=== PATIENT | male | born 1970 | race African-American/Black ===

== ENCOUNTER 2017-10-20 01:46 | Inpatient (IN) | payer OTHER ==
[2017-10-20 02:57] LABS: #Basophils 0.1 thou/uL (0.0-0.2); #Eosinphils 0.3 thou/uL (0.0-0.7); #Lymphocytes 2.1 thou/uL (1.20-3.40); #Monocytes 0.8 thou/uL (0.11-0.59); #Neutrophils 6.4 thou/uL (1.40-6.50); %Basophils 1.1 % (0.0-1.0); %Eosinophils 2.6 % (0.0-10.0); %Lymphocytes 21.8 % (21.0-51.0); %Monocytes 8.6 % (0.0-10.0); %Neutrophils 65.9 % (42.0-75.0); Hemoglobin 13.9 g/dL (14.0-18.0); Mean Corpuscular Hemoglobin 27.3 pg (27.0-31.0); Mean Corpuscular Volume 85.3 fL (78.0-98.0); Mean Platelet Volume 8.5 fL (7.4-10.4); Platelet Count 259 thou/uL (130-400); RBC Distribution Width 15.8 % (11.5-14.5); Red Blood Cell (RBC) Count 5.08 mill/uL (4.70-6.10); White Blood Cell (WBC) Count 9.7 thou/uL (4.8-10.8)
[2017-10-20 03:04] LABS: Prothrombin Time 13.7 SEC (12.0-14.7)
[2017-10-20 03:05] LABS: PTT 34.5 SEC (22.9-36.1)
[2017-10-20 03:19] LABS: ALT (SGPT) 16 U/L (8-55); AST (SGOT) 24 U/L (5-34); Albumin 4.3 g/dL (3.5-5.0); Alkaline Phosphatase 39 U/L (40-150); Anion Gap 13 mmol/L (10-20); BUN (Urea Nitrogen) 13 mg/dL (8.9-20.6); Bilirubin, Total 0.9 mg/dL (0.2-1.2); Calc. Creatinine Clearance 0 mL/min (70-130); Calcium 10.5 mg/dL (7.8-10.44); Carbon Dioxide 29 mmol/L (22-29); Chloride 100 mmol/L (98-107); Estimated GFR-MDRD Greater than 90; Globulin 5.9 g/dL (2.4-3.5); Glucose 86 mg/dL (70-105); Potassium 4.4 mmol/L (3.5-5.1); Protein, Total 10.2 g/dL (6.0-8.3); Sodium 138 mmol/L (136-145)
[2017-10-20] MEDS ORDERED: Ondansetron ODT 4 MG TAB SL PRN (05:24)
[2017-10-20] MEDS ORDERED: Ondansetron HCl/PF 4 MG/2 ML Vial IVP PRN (05:24)
[2017-10-20] MEDS ORDERED: Acetaminophen 325 MG TAB PO PRN (05:24)
[2017-10-20] MEDS ORDERED: Sodium Chloride 0.45% 1,000 ML IV SCH (05:24)
[2017-10-20 05:25] VITALS: BMI 16.9
[2017-10-20] MEDS ORDERED: Labetalol HCl 100 MG/20 ML VIAL SLOW IVP PRN (05:25)
[2017-10-20] MEDS: Sodium Chloride 0.9% 1,000 ML IV SCH ×2 (08:18→16:48)
[2017-10-20] MEDS ORDERED: levETIRAcetam In NaCl (Iso-Os) 1,000 MG in Premix Bag 1 BAG IVPB SCH (09:00)
--- NOTE | 2017-10-20 10:25 | CT ---
PRELIMINARY REPORT/[facility]/EMERGENTY AFTER-HOURS PROCEDURE Addendum created by Karel Leyva MD on 10/20/2017 5:46 AM Central Time ([place] & [place]) Findings discus sed with JOYCE STEELE at time of interpretation. Initial Report created on 10/20/2017 5:46 AM Central Time ([place] & [place]) CT Head Without Intravenous Contrast CLINICAL HISTORY: 46 years old, male; Signs and symptoms; Other: Headache; Patient HX: 46 yo m transfer from [place] presents to ed with headache. PT reports his "neck got locked up and couldn't move. " PT denies any fall or trauma to head. PT denies any blood thinners. PT reports he was diagnosed with an aneurysm ab out 1 year ago. PT went to hospital in [place] around 5: 30pm yesterday, he was then transferred h ere after cat scan found blood. CT brain without contrast showed acute subdural hemorrhage in the pos terior fossa/tentorial region with extension along the posterior aspect of the falx TECHNIQUE: Axial computed tomography images of the head/brain without intravenous contrast. COMPARISON: No relevant prior studies available. FINDINGS: Brain: Diffuse acute extra-axial blood layering symmetrically along the tentorium cerebelli. There is diffuse edema of the cerebellum with compression of the fourth ventricle, resulting in symmetric dil atation of the third and lateral ventricles, consistent with obstructive hydrocephalus. There is also incompletely visualized large volume extra-axial blood in the anterior central canal at the C1-C2 le curtis. No herniation. Ventricles: See Brain Finding. Bones/joints: Normal. No acute fracture. Sinuses: Partial opacification of the frontal and ethmoid sinuses may signify sinusitis. Mastoid air cells: Normal as visualized. No mastoid effusion. Soft tissues: Normal. IMPRESSION: 1. Diffuse acute extra-axial blood layering some ventricle along the tentorium cerebellum with diffus e cerebellar edema resulting in compression of the fourth ventricle, causing obstructive hydrocephalu s. There is also incompletely visualized large volume extra-axial blood in the anterior central canal , at the C1-C2 level. 2. Partial opacification of the frontal and ethmoid sinuses may signify sinusitis. Thank you for allowing us to participate in the care of your patient. Dictated and Authenticated by: Karel Leyva MD 10/20/2017 5:46 AM Central Time ([place] & [place]) FINAL REPORT CT BRAIN WITHOUT CONTRAST: I agree with the preliminary report given by Dr. Karel Leyva of [facility]. Incidentally noted dural vein thombosis is described on concurrent MRI. POS: [facility]
--- NOTE | 2017-10-20 10:28 | CT ---
PRELIMINARY REPORT/[facility]/EMERGENTY AFTER-HOURS PROCEDURE CT Angiography Head With Intravenous Contrast CLINICAL HISTORY: 46 years old, male; Pain; Headache; Patient HX: 46 yo m transfer from [place] presents to ed with headache. Pt reports his "neck got locked up and couldn't move. " pt denies any fall or trauma to hea d. Pt denies any blood thinners. Pt reports he was diagnosed with an aneurysm about 1 year ago. Pt we nt to hospital in [place] around 5: 30pm yesterday, he was then transferred here after cat scan fo und blood. CT brain without contrast showed acute subdural hemorrhage in the posterior fossa/tentoria l region with extension along the posterior aspect of the falx TECHNIQUE: Axial computed tomographic angiography images of the head with intravenous contrast using CT angiogra phy protocol. MIP reconstructed images were created and reviewed. Coronal and sagittal reformatted im ages were created and reviewed. COMPARISON: No relevant prior studies available. FINDINGS: Right internal carotid artery: No acute findings. Intracranial segment is patent with no significant stenosis. No aneurysm. Right anterior cerebral artery: Unremarkable. No occlusion or significant stenosis. No aneurysm. Right middle cerebral artery: Unremarkable. No occlusion or significant stenosis. No aneurysm. Right posterior cerebral artery: Unremarkable. No occlusion or significant stenosis. No aneurysm. Right vertebral artery: Unremarkable as visualized. Left internal carotid artery: No acute findings. Intracranial segment is patent with no significant s tenosis. No aneurysm. Left anterior cerebral artery: Unremarkable. No occlusion or significant stenosis. No aneurysm. Left middle cerebral artery: Unremarkable. No occlusion or significant stenosis. No aneurysm. Left posterior cerebral artery: Unremarkable. No occlusion or significant stenosis. No aneurysm. Left vertebral artery: Unremarkable as visualized. Basilar artery: Unremarkable. No occlusion or significant stenosis. No aneurysm. Other vasculature: The left jugular vein is patent. Brain: The straight sinus is diminutive but patent potentially secondary to compression by the subdur al parafalcine hematoma. There is nonopacification of the lateral left transverse sinus and left sigm oid sinus which could be due to flow phenomenon related to compression by the parafalcine subdural he matoma, could be chronic, or could represent age-indeterminate thrombosis. IMPRESSION: 1. No aneurysm or AVM. 2. The straight sinus is diminutive but patent potentially secondary to compression by the subdural p arafalcine hematoma. 3. There is nonopacification of the lateral left transverse sinus and left sigmoid sinus which could be due to flow phenomenon related to compression by the parafalcine subdural hematoma, could be chron ic, or could represent age-indeterminate thrombosis. CT Angiography Neck With Intravenous Contrast TECHNIQUE: Axial computed tomographic angiography images of the neck with intravenous contrast using CT angiogra phy protocol. COMPARISON: No relevant prior studies available. FINDINGS: VASCULATURE: Right common carotid artery: Unremarkable. No significant stenosis. No dissection or occlusion. Right internal carotid artery: Unremarkable. Extracranial segment is patent with no significant steno sis. No dissection or occlusion. Right external carotid artery: Unremarkable. No occlusion. Right vertebral artery: Unremarkable. No significant stenosis. No dissection or occlusion. Left common carotid artery: Unremarkable. No significant stenosis. No dissection or occlusion. Left internal carotid artery: Unremarkable. Extracranial segment is patent with no significant stenos is. No dissection or occlusion. Left external carotid artery: Unremarkable. No occlusion. Left vertebral artery: Unremarkable. No significant stenosis. No dissection or occlusion. NECK: Bones/joints: Large amount of extra-axial blood in the anterior central canal from the foramen magnum to approximately the C6 level. No acute fracture. No dislocation. Soft tissues: Unremarkable as visualized. No mass. CAROTID STENOSIS REFERENCE USING NASCET CRITERIA: % ICA stenosis = (1 - narrowest ICA diameter/diameter of distal cervical ICA) x 100. Mild - <50% stenosis. Moderate - 50-69% stenosis. Severe - 70-94% stenosis. Near occlusion - 95-99% stenosis. Occluded - 100% stenosis. IMPRESSION: 1. Large amount of extra-axial blood in the anterior central canal from the foramen magnum to approxi mately the C6 level. 2. No acute vascular findings. Thank you for allowing us to participate in the care of your patient. Dictated and Authenticated by: Karel Leyva MD 10/20/2017 6:02 AM Central Time ([place] & [place]) FINAL REPORT CT HEAD WITH IV CONTRAST AND 3D POSTPROCESSING CT NECK WITH IV CONTRAST AND 3D POSTPROCESSING: I agree with the preliminary report given by Dr. Karel Leyva of [facility]. Incidentally noted dural vein thombosis is described on concurrent MRI. POS: [facility]
[2017-10-20] MEDS ORDERED: ISOVUE-370 76%-LOCM 1 ML ONE (10:35)
[2017-10-20 11:17] LABS: Hemoglobin 12.5 g/dL (14.0-18.0); Platelet Count 229 thou/uL (130-400)
[2017-10-20] MEDS: Heparin 25,000 units/D5W 500 ML IVPB SCH (11:22)
[2017-10-20] MEDS: Acetaminophen 1,000 MG in Premix Bag 1 BAG IVPB PRN ×2 (11:23→18:29)
--- NOTE | 2017-10-20 12:03 | MRI ---
MRI BRAIN WITH AND WITHOUT CONTRAST: CLINICAL HISTORY: Abnormal CT examination. Headache. Clinical concern for intracranial hemorrhage. FINDINGS: There is abnormal pachymeningeal thickening and enhancement, which predominantly involves the skull b ase cisterns/posterior fossa. There is relative sparing of this finding overlying the cerebrum. The re is abnormal prominent narrowing at the level of the fourth ventricle with associated ventriculomeg jhon, proximally. No pathologic enhancement along the ependymal lining is seen. There are abnormal diminished flow voids seen at the level of the left sigmoid sinus, left internal j ugular vein flow void, left transverse sinus, and region of the torcula herophili. This does indicat e abnormal filling defect related to thrombosis. There is no pathologic intraaxial enhancement or si gnificant degree of cerebral edema. No intracranial hemorrhagic susceptibility. Blush of enhancement at the anterior left subinsula indicates developmental venous anomaly. Scattered paranasal sinus mucosal inflammation/enhancement is present. There is fluid within the fro ntal sinus. No significant mastoid effusion. A few nonspecific punctate foci of FLAIR and T2 hyperintensity are seen within the cerebral parenchym a. IMPRESSION: 1. Evidence of pachymeningeal enhancement and thickening, predominantly at the skull base cisterns a nd posterior fossa. Given concomitant abnormal flow void of the left skull base, this most likely re lates to venous congestion. The possibility of an infectious meningitis with associated dural vein t hrombosis cannot be excluded and should be correlated clinically. 2. Obstructive hydrocephalus occurring at the level of the fourth ventricle. 3. Prominent paranasal sinus inflammatory mucosal disease. Findings conveyed to Dr. Rollins at the time of dictation. POS: [facility]
--- NOTE | 2017-10-20 12:08 | PRG ---
DATE OF SERVICE: 10/20/2017 Mr. Hadley is a 46-year-old gentleman that presents with a protracted course of a progressively worsen ing headache. He had a noncontrast head CT performed which initially was concerning for subdural hem atoma and associated ventriculomegaly. Subsequent to that time, he had a CT angiogram performed of t he head as well as MRI of the head which shows a venous sinus thrombosis along the left transverse si nus down to the sigmoid and proximal aspect of the jugular. Other than a headache, he is neurologica lly intact. There have been no signs of infection. Mr. 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 There is no evidence for intracerebral hemorrhage at this point in time. The manage ment plan will be one of medical management in the way of aggressive hydration, but also anticoagulat ion. He will need a CT scan within the next couple of days to ensure there are no signs of early brandi ous infarct with associated hemorrhagic conversion. We will consult our Medicine colleagues to celestine t with medical management as well.
[2017-10-20] MEDS ORDERED: Albuterol Sulfate 2.5 mg/3 ml Neb NEB PRN (15:59)
--- NOTE | 2017-10-20 18:36 | CON ---
DATE OF CONSULTATION: 10/20/2017 CONSULTING PHYSICIAN: [facility]. REASON FOR CONSULTATION: ICU management. HISTORY OF PRESENT ILLNESS: The patient is a 46-year-old inmate. He presented to the hospital [facility] with progressive worsening of a headache. Before that, he had had some numbness in his hands, w hich resolved spontaneously. He was found to have central venous sinus thrombosis, which had led to communicating hydrocephalus. Apparently, he had no evidence of intracranial hemorrhage at that time. At the current time, the patient has a mild headache, but has no other complaints. PAST MEDICAL HISTORY: 1. Asthma. 2. Hepatitis C. 3. Hypothyroidism. 4. Schizophrenia. PAST SURGICAL HISTORY: None. ALLERGIES: PENICILLIN. MEDICATIONS PRIOR TO ADMISSION: Iron sulfate, levothyroxine, nortriptyline, Proventil, risperidone. SOCIAL HISTORY: Does not smoke, does not consume alcohol. REVIEW OF SYSTEMS: Twelve-point review of systems is otherwise negative. PHYSICAL EXAMINATION: VITAL SIGNS: Temperature 97.5, pulse 100, blood pressure 102/53, O2 sat 95%. GENERAL: He is awake, alert, in no distress. HEENT: Unremarkable. NECK: Without adenopathy, JVD, or bruits. LUNGS: Clear without wheeze or rhonchi. CARDIAC: S1, S2 regular without murmur. ABDOMEN: Soft, nontender, nondistended. EXTREMITIES: No clubbing, cyanosis, or edema. LABORATORY DATA: White blood cell count 9.7, hematocrit 39.2, platelet count 229. PTT is 33.7. Sod ium 138, potassium 4.4, chloride 100, CO2 of 29, BUN 13, creatinine 0.8, glucose 86. Brain MRI from this morning demonstrated obstructive hydrocephalus occurring at the level of fourth ventricle, promi nent paranasal sinus inflammation, also has the venous thrombosis. ASSESSMENT: 1. Cerebral venous sinus thrombosis. 2. History of asthma, which is stable. 3. Schizophrenia, which appears stable. PLAN: I will write him for as needed breathing treatments. He is currently being anticoagulated by the Neurosurgery service. He is also on IV fluids. Deep venous thrombosis prophylaxis will be addre ssed with the heparin drip. I will add Pepcid for GI prophylaxis.
[2017-10-20] MEDS: Famotidine 20 MG TAB PO SCH (20:54)
[2017-10-21] MEDS: Sodium Chloride 0.9% 1,000 ML IV SCH ×4 (00:05→22:20)
[2017-10-21] MEDS: Acetaminophen 1,000 MG in Premix Bag 1 BAG IVPB PRN ×2 (06:23)
--- NOTE | 2017-10-21 07:30 | CT ---
CT BRAIN WITHOUT CONTRAST: Date: 10/21/17 HISTORY: Venous sinus thrombosis. COMPARISON: CT brain dated 10/20/17. FINDINGS: There is similar appearance of the thickened hyperdense tentorium cerebelli with abnormal thickened e xtra-axial soft tissue along the brainstem. No intra-axial hemorrhage. Ventricular size is similar. N o midline shift. IMPRESSION: Similar appearance of the thickened tentorium cerebelli which is hyperdense with thickened extra-axia l soft tissue along the brainstem. Differential includes pachymeningeal thickening from infection, as well as completely unchanged hemorrhage. POS: [facility]
[2017-10-21] MEDS: Famotidine 20 MG TAB PO SCH ×2 (08:14→20:46)
--- NOTE | 2017-10-21 09:08 | PRG ---
DATE OF SERVICE: 10/21/2017. SUBJECTIVE: Mr. Hadley is a 47-year-old gentleman admitted with a headache. He underwent imaging yes terday, which reveals the presence of a venous sinus thrombosis. He has been in the ICU undergoing a nticoagulation with a heparin drip and IV fluids. Neurologically, he has been intact. Repeat CT sca n was stable. The plan will be to transition him to the floor and continue with anticoagulants for t he foreseeable future. He will need to be transitioned at some point from a heparin drip to oral ant icoagulants. We will also transition service to our Hospitalist Service for definitive medical manag ement.
[2017-10-21] MEDS ORDERED: Gadobenate Dimeglumine 529 MG/1 ML (20ML VIAL) ONE (10:44)
--- NOTE | 2017-10-21 11:51 | PRG ---
DATE OF SERVICE: 10/21/2017 SERVICE: Pulmonary Medicine. INTERVAL HISTORY: The patient is doing fine from a respiratory standpoint. He denies any chest pain , nausea, vomiting, fevers or chills. He continues to have persistent headache. He is tolerating p. o. Otherwise, there has been no interval change to his condition. OBJECTIVE: VITAL SIGNS: Afebrile, pulse 68, blood pressure 117/68, respirations 13, saturation 99% on room air. GENERAL: The patient is awake, alert, no apparent distress. LUNGS: Decent air entry. There is no prolonged expiratory phase or wheezing present. HEART: Normal rate, regular. ABDOMEN: Soft, nontender, nondistended. Bowel sounds are positive. MUSCULOSKELETAL: No cyanosis or clubbing. No pitting in the bilateral lower extremities. NEUROLOGIC: Nonfocal. He is moving all 4 extremities. HEENT: Pupils are equal, round, and reactive to light. IMAGING: CT of the brain demonstrates similar appearance of thickened tentorium cerebelli and extraa xial soft tissues along the brainstem. ASSESSMENT: 1. Cerebral venous thrombosis. 2. Asthma without acute exacerbation. 3. Schizophrenia. DISCUSSION AND PLAN: The patient is stable for transition out of the ICU to the stroke unit. [facility] will continue to follow along for the time being. We will monitor closely for neur ologic deterioration. If that is identified, please give us a phone call.
--- NOTE | 2017-10-21 11:52 | PDOC.PN ---
- Subjective Encounter Start Date: 10/21/17 Encounter Start Time: 11:50 Pt seen for management of medical comorbidities, including venous sinus thrombosis. Reports having on and off headaches. Denies chest pain or shortness of breath. - Objective MAR Reviewed: Yes Vital Signs & Weight: Vital Signs (12 hours) Temp Pulse Resp Pulse Ox 10/21/17 08:00 97.6 F 68 13 99 10/21/17 04:00 98.0 F 10/21/17 00:00 98.2 F Weight Admit Weight 135 lb 12.864 oz Weight 135 lb 12.864 oz Most Recent Monitor Data Heart Rate from ECG 67 NIBP 127/80 NIBP BP-Mean 91 Respiration from ECG 12 SpO2 96 I&O: 10/20/17 10/21/17 10/22/17 06:59 06:59 06:59 Intake Total 100 3507 912.4 Output Total 500 350 500 Balance -400 3157 412.4 Result Diagrams: 10/20/17 10:52 10/20/17 02:40 EKG Reviewed by me: Yes (Tele: NSR) Phys Exam - Physical Examination Constitutional: NAD HEENT: moist MMs, sclera anicteric, oral pharynx no lesions, 2+ tonsils Neck: no nodes, no JVD, supple, full ROM Respiratory: no wheezing, no rales, no rhonchi, clear to auscultation bilateral Cardiovascular: RRR, gallop S1,S2 Gastrointestinal: soft, non-tender, no distention, positive bowel sounds Neurological: moves all 4 limbs Psychiatric: normal affect Deviation from normal: oriented to person and place, not to time Dx/Plan (1) Cerebral venous sinus thrombosis Code(s): G08 - INTRACRANIAL AND INTRASPINAL PHLEBITIS AND THROMBOPHLEBITIS Status: Acute Comment: on heparin drip, will start warfarin (2) Hypothyroidism Code(s): E03.9 - HYPOTHYROIDISM, UNSPECIFIED Status: Chronic Comment: continue synthroid (3) Iron deficiency anemia Code(s): D50.9 - IRON DEFICIENCY ANEMIA, UNSPECIFIED Status: Chronic Comment : continue ferrous sulfate (4) Asthma Code(s): J45.909 - UNSPECIFIED ASTHMA, UNCOMPLICATED Status: Chronic Comment : stable, continue PRN albuterol (5) Hepatitis C Code(s): B19.20 - UNSPECIFIED VIRAL HEPATITIS C WITHOUT HEPATIC COMA Status: Chronic Comment: stable - Plan * . Review of Systems - Review of Systems Constitutional: negative: fever, chills, sweats, weakness, malaise Respiratory: negative: Cough, Shortness of Breath, SOB with Excertion, Pleuritic Pain, Wheezing Cardiovascular: negative: chest pain, palpitations, orthopnea, paroxysmal nocturnal dyspnea, edema, light headedness Gastrointestinal: negative: Nausea, Vomiting, Abdominal Pain, Diarrhea, Constipation, Melena, Hematochezia Genitourinary: negative: Dysuria, Frequency, Incontinence, Hematuria, Retention Neurological: Other. negative: Weakness, Numbness, Incoordination, Change in Speech, Confusion, Seizures (headache) - Medications/Allergies Allergies/Adverse Reactions: Allergies Allergy/AdvReac Type Severity Reaction Status Date / Time Penicillins Allergy Verified 10/20/17 05:24 Medications: Current Medications Albuterol Sulfate (Ventolin) 2.5 mg NEB [id number] PRN PRN Reason: Wheezing Famotidine (Pepcid) 20 mg PO BID [facility] Last Admin: 10/21/17 08:14 Dose: 20 mg Sodium Chloride (Normal Saline 0.9%) 1,000 mls @ 120 mls/hr IV .Q8H20M HELEN Last Admin: 10/21/17 05:06 Dose: 1,000 mls Heparin Sodium/Dextrose (Heparin 25,000 Units/D5w 500 Ml) 500 mls @ 0 mls/hr IVPB INF HELEN; Per Protocol PRN Reason: Protocol Last Admin: 10/20/17 11:22 Dose: 500 mls Morphine Sulfate (Morphine) 2 mg SLOW IVP Q2HR PRN PRN Reason: severe breakthrough pain Last Admin: 10/21/17 11:25 Dose: 2 mg Sodium Chloride (Flush - Normal Saline) 10 ml IVF Q12HR HELEN Last Admin: 10/21/17 08:14 Dose: 10 ml Sodium Chloride (Flush - Normal Saline) 10 ml IVF PRN PRN PRN Reason: Saline Flush
[2017-10-21] MEDS ORDERED: PROVENTIL INHALER 6.7 G (200 INHALATIONS) INH PRN (11:54)
[2017-10-21] MEDS: Heparin 25,000 units/D5W 500 ML IVPB SCH (14:15)
[2017-10-21] MEDS: Acetaminophen/Codeine 30-300mg Tablet PO PRN (20:45)
[2017-10-21] MEDS: Nortriptyline HCl 25 MG CAP PO SCH (20:45)
[2017-10-21] MEDS: risperiDONE 1 MG TAB PO SCH (20:46)
[2017-10-22] MEDS: Levothyroxine Sodium 25 MCG TAB PO SCH (05:46)
[2017-10-22] MEDS: Acetaminophen/Codeine 30-300mg Tablet PO PRN ×3 (05:46→21:49)
[2017-10-22] MEDS: Famotidine 20 MG TAB PO SCH ×2 (08:14→21:48)
[2017-10-22] MEDS: Ferrous Sulfate 325 MG TAB PO SCH (08:15)
[2017-10-22] MEDS: Sodium Chloride 0.9% 1,000 ML IV SCH (08:22)
[2017-10-22] MEDS ORDERED: metroNIDAZOLE 500 MG in Premix Bag 1 BAG IVPB SCH (09:00)
[2017-10-22 09:25] LABS: #Basophils 0.1 thou/uL (0.0-0.2); #Eosinphils 0.2 thou/uL (0.0-0.7); #Lymphocytes 1.9 thou/uL (1.20-3.40); #Monocytes 0.6 thou/uL (0.11-0.59); #Neutrophils 5.2 thou/uL (1.40-6.50); %Basophils 1.3 % (0.0-1.0); %Lymphocytes 23.7 % (21.0-51.0); %Monocytes 7.7 % (0.0-10.0); %Neutrophils 65.3 % (42.0-75.0); Hemoglobin 11.5 g/dL (14.0-18.0); Mean Corpuscular HGB CONC 31.2 g/dL (32.0-36.0); Mean Corpuscular Volume 86.7 fL (78.0-98.0); Mean Platelet Volume 8.8 fL (7.4-10.4); Platelet Count 251 thou/uL (130-400); RBC Distribution Width 15.5 % (11.5-14.5); Red Blood Cell (RBC) Count 4.27 mill/uL (4.70-6.10)
[2017-10-22 09:37] LABS: Anion Gap 13 mmol/L (10-20); BUN (Urea Nitrogen) 6 mg/dL (8.9-20.6); Calc. Creatinine Clearance 86 mL/min (70-130); Calcium 9.5 mg/dL (7.8-10.44); Carbon Dioxide 26 mmol/L (22-29); Chloride 103 mmol/L (98-107); Estimated GFR-MDRD Greater than 90; Glucose 97 mg/dL (70-105); Potassium 3.5 mmol/L (3.5-5.1); Sodium 138 mmol/L (136-145)
[2017-10-22] MEDS ORDERED: Vancomycin HCl 1 GM in Premix Bag 1 BAG IVPB SCH (10:00)
[2017-10-22 10:04] LABS: D-Dimer Test 0.89 *mcg/mL (0.27-0.43); PTT 59.4 SEC (22.9-36.1); Prothrombin Time 13.5 SEC (12.0-14.7)
[2017-10-22 10:07] LABS: Protein C Activity 116 % (78-152)
--- NOTE | 2017-10-22 10:13 | CT ---
CT BRAIN WITHOUT CONTRAST: HISTORY: Follow-up thickened pachymeninges along the tentorium. COMPARISON: 10/21/2017 TECHNIQUE: Multiple contiguous axial images were obtained in a CT of the brain without contrast. FINDINGS: There is stable increased density along the tentorium. No intraventricular hemorrhage is seen. Ther e is slight prominence of the lateral ventricles. No extraaxial fluid collection is seen. The calvarium and overlying soft tissues are unremarkable. The visualized paranasal sinuses and mast oid air cells are well aerated. IMPRESSION: Stable increased density of the tentorium. POS: [facility]
--- NOTE | 2017-10-22 13:25 | PDOC.PN ---
- Subjective Encounter Start Date: 10/22/17 Encounter Start Time: 13:22 Subjective: feels left sided headache and throbbing-for years -: no arm or leg weakness/paraesthesias - Objective MAR Reviewed: Yes Vital Signs & Weight: Vital Signs (12 hours) Temp Pulse Resp BP Pulse Ox 10/22/17 08:23 98 F 72 18 96 10/22/17 08:00 97.9 F 86 12 153/87 H 96 Weight Admit Weight 135 lb 12.864 oz Weight 135 lb 12.864 oz Most Recent Monitor Data Heart Rate from ECG 67 NIBP 127/80 NIBP BP-Mean 91 Respiration from ECG 12 SpO2 96 I&O: 10/21/17 10/22/17 10/23/17 06:59 06:59 06:59 Intake Total 3507 912.4 1920 Output Total 828 481 6841 Balance 3157 412.4 220 Result Diagrams: 10/22/17 09:08 10/22/17 09:08 Additional Labs: labs reviewed Phys Exam - Physical Examination Constitutional: NAD HEENT: PERRLA, moist MMs, sclera anicteric, oral pharynx no lesions Neck: no nodes, no JVD, supple, full ROM Respiratory: no wheezing, no rales, no rhonchi, clear to auscultation bilateral Cardiovascular: RRR, no significant murmur, no rub Gastrointestinal: soft, non-tender, no distention, positive bowel sounds Musculoskeletal: no edema, pulses present Neurological: non-focal, normal sensation, moves all 4 limbs Psychiatric: normal affect, A&O x 3 Skin: no rash Dx/Plan (1) Cerebral venous sinus thrombosis Code(s): G08 - INTRACRANIAL AND INTRASPINAL PHLEBITIS AND THROMBOPHLEBITIS Status: Acute Comment: on heparin drip, will start warfarin (2) Asthma Code(s): J45.909 - UNSPECIFIED ASTHMA, UNCOMPLICATED Status: Chronic Comment : stable, continue PRN albuterol (3) Hepatitis C Code(s): B19.20 - UNSPECIFIED VIRAL HEPATITIS C WITHOUT HEPATIC COMA Status: Chronic Qualifiers: Viral hepatitis chronicity: chronic Hepatic coma status: without hepatic coma Qualified Code(s): B18.2 - Chronic viral hepatitis C Comment: stable (4) Hypothyroidism Code(s): E03.9 - HYPOTHYROIDISM, UNSPECIFIED Status: Chronic Comment: continue synthroid (5) Iron deficiency anemia Code(s): D50.9 - IRON DEFICIENCY ANEMIA, UNSPECIFIED Status: Chronic Comment : continue ferrous sulfate - Plan out of bed/ambulate, DVT proph w/SCDs neurology consulted for venous sinus thrombosis? Ac vs Chronic -: ? need for Antibiotics for possible sinus infection as a cause -: DC heparin drip and start Coumadin w daily PT/INR -: follwo NS recs . brain CT in am. -: if stable.alonoz MARCH back to [facility] tomorrow * . Review of Systems - Review of Systems Constitutional: negative: fever, chills, sweats, weakness, malaise, other Eyes: Pain ENT: negative: Ear Pain, Ear Discharge, Nose Pain, Nose Discharge, Nose Congestion, Mouth Pain, Mouth Swelling, Throat Pain, Throat Swelling, Other Respiratory: negative: Cough, Dry, Shortness of Breath, Hemoptysis, SOB with Excertion, Pleuritic Pain, Sputum, Wheezing Cardiovascular: negative: chest pain, palpitations, orthopnea, paroxysmal nocturnal dyspnea, edema, light headedness, other Gastrointestinal: negative: Nausea, Vomiting, Abdominal Pain, Diarrhea, Constipation, Melena, Hematochezia, Other Genitourinary: negative: Dysuria, Frequency, Incontinence, Hematuria, Retention , Other Musculoskeletal: negative: Neck Pain, Shoulder Pain, Arm Pain, Back Pain, Hand Pain, Leg Pain, Foot Pain, Other Neurological: negative: Weakness, Numbness, Incoordination, Change in Speech, Confusion, Seizures, Other - Medications/Allergies Allergies/Adverse Reactions: Allergies Allergy/AdvReac Type Severity Reaction Status Date / Time Penicillins Allergy Verified 10/20/17 05:24 Medications: Current Medications Acetaminophen/Codeine Phosphate (Tylenol #3) 1 tab PO Q4H PRN PRN Reason: Pain Last Admin: 10/22/17 05:46 Dose: 1 tab Albuterol Sulfate (Ventolin) 2.5 mg NEB [id number] PRN PRN Reason: Wheezing Albuterol Sulfate (Proventil Hfa) 2 puff INH Q6H PRN PRN Reason: SOB &/or Wheezing Famotidine (Pepcid) 20 mg PO BID [facility] Last Admin: 10/22/17 08:14 Dose: 20 mg Ferrous Sulfate (Feosol) 325 mg PO DAILY [facility] Last Admin: 10/22/17 08:15 Dose: 325 mg Levothyroxine Sodium (Synthroid) 25 mcg PO 0600 [facility] Last Admin: 10/22/17 05:46 Dose: 25 mcg Morphine Sulfate (Morphine) 2 mg SLOW IVP Q2HR PRN PRN Reason: severe breakthrough pain Last Admin: 10/22/17 08:12 Dose: 2 mg Nortriptyline HCl (Pamelor) 50 mg PO HS [facility] Last Admin: 10/21/17 20:45 Dose: 50 mg Risperidone (Risperidone) 2 mg PO HS [facility] Last Admin: 10/21/17 20:46 Dose: 2 mg Sodium Chloride (Flush - Normal Saline) 10 ml IVF Q12HR [facility] Last Admin: 10/22/17 08:15 Dose: Not Given Sodium Chloride (Flush - Normal Saline) 10 ml IVF PRN PRN PRN Reason: Saline Flush Warfarin Sodium (Coumadin) 5 mg PO 1700 [facility]
[2017-10-22] MEDS: Warfarin Sodium 5 MG TAB PO SCH (15:09)
[2017-10-22 18:16] LABS: HIV (1/2) Antibody/Antigen Non-Reactive (NonReactive); HIV 1/2 INDEX 0.13 S/CO (<1.00)
[2017-10-22] MEDS: Nortriptyline HCl 25 MG CAP PO SCH (21:49)
[2017-10-22] MEDS: risperiDONE 1 MG TAB PO SCH (21:50)
--- NOTE | 2017-10-22 22:43 | CON ---
DATE OF CONSULTATION: 10/22/2017 REASON FOR CONSULTATION: Intracerebral hemorrhage, venous sinus thrombosis. HISTORY OF PRESENT ILLNESS: A 47-year-old who has a history of asthma, chronic hepatitis C, and schizophrenia. Who is an inmate at [facility] and has experienced persistent headaches localized to the occipital area for the past year with progressive worsening. Pt had previous evaluations elsewhere and reportedly was told a few months ago that he had 'an aneurysm' but does not recall that anything was done. In view of persistence of symptoms pt was brought by [facility] for evaluation and had the imaging studies identified the findings described below. Currently he persists with posterior, left sided headaches. No visual symptoms, no ear drainage or pain. No nasal symptoms, no post nasal drainage. No sorethroat, odynophagia or dysphagia. No dyspnea, cough or chest pain. No sputum production. No abd pain, no dysuria. No joint symptoms or skin disorder. PMHx: Hep C, unknown treatmt hx. Schizophrenia, Asthma. PSHx: negative SOCIAL HISTORY: He is currently incarcerated, [facility] for the past year. Prior hx of smoking, no iv drug use. ALLERGIES: PENICILLIN with rash. MEDICATIONS AT HOME: Levothyroxine, nortriptyline, Proventil, Risperdal, ferrous sulfate. Currently on Warfarin FAMILY HISTORY: Noncontributory. PHYSICAL EXAMINATION: VITAL SIGNS: T-max 98.7, blood pressure 180/105, respirations 86, O2 saturation 92%. SKIN: Normal. No lymphadenopathy. Peripheral IV access. HEENT: Ocular movements conjugate. Sclerae white. Conjunctivae normal. Oral cavity moist. Numerous teeth in place, which has little decay. NECK: Supple. No jugular vein distention. LUNGS: Symmetric air entry. HEART: S1, S2 regular rate. ABDOMEN: Soft, not distended. EXTREMITIES: He moves all extremities equally. GENITALIA: Normal. NEUROLOGIC: Cognitive function appears to be normal. LABORATORY DATA: White cell count 9.7, hemoglobin 13, platelets 259, normal differential. APTT 85 to 63. D-dimer 0.89, calcium 10.5, alkaline phosphatase 39, serum total protein 10.2, albumin is 4.3, globulin is 5.9, homocysteine 7.05. CT angiogram and [facility] angiogram showed no aneurysm or AVM, and nonopacification of lateral left transverse sinus and sigmoid sinus probably due to thrombosis. Brain MRI showed pachymeningeal and meningeal enhancement, thickening in his basal cisterns and ventricular foci, probably from venous congestion from the thrombosis. ASSESSMENT: History of hepatitis C with unknown prior treatment, now presents with a 1-year history of persistent headaches localized to the posterior occiput with now identified left-sided cerebral venous sinus thrombosis of sigmoid and transverse sinus, also with evidence of hypergammaglobulinemia. DISCUSSION: Differential diagnosis includes hypercoagulable syndrome or plasma cell dyscrasia with a possibility of Waldenstrom macroglobulinemia. Hypercoagulability panel has been submitted. Usually, protein C, protein S needs to be checked off warfarin. The other factors can be checked now, particularly the factor V Leiden mutation and lupus anticoagulant. We will submit serum protein electrophoresis. Check hepatitis C RNA PCR and HIV. Although infectious processes may be associated with cerebral sinus thrombosis ( sinusitis, meningitis, otitis media) those are typically very acute processes with clinical findings that are not present in this case, including altered mental status, fever, leukocytosis. MTDD
--- NOTE | 2017-10-23 00:41 | CON ---
DATE OF CONSULTATION: 10/22/2017 REFERRING PROVIDER: Nohemy Morales M.D. REASON FOR CONSULTATION: Several venous sinus thromboses. HISTORY OF PRESENT ILLNESS: Mr. Hadley is a 47-year-old -N[place]alese male who is an inmate [facility] with a complaint of progressively worsening headache. He reports that he has been having headach e over the past 1 year, this has gradually gotten worse over time. On yesterday, the pain was very i ntense. It was located in the back of the head and neck pain was radiating all over. It was a sharp and pounding in quality. He also felt neck stiffness and neck pain which prompted him to present to the emergency room. On arrival here, he had a CT head without contrast done, which had shown diffus e acute x-ray filled blood layering along the tentorium cerebellum with a diffuse cerebral edema with compression of the fourth ventricle. For this reason, he was admitted. He did not have any vision changes, diplopia, ptosis, numbness, tingling, weakness, difficulty with balance. There was no fever , chills, night sweats, chest pain, and palpitation. PAST MEDICAL HISTORY: Significant for asthma, hepatitis C, hypothyroidism, and schizophrenia. PAST SURGICAL HISTORY: None significant. SOCIAL HISTORY: He denies smoking, alcohol use and illicit drug use. He is currently inmate at a [facility]. CURRENT MEDICATIONS: Please review MAR. ALLERGIES: Include PENICILLIN. FAMILY HISTORY: Noncontributory. REVIEW OF SYSTEMS: As mentioned above in the HPI, otherwise negative. PHYSICAL EXAMINATION: VITAL SIGNS: Blood pressure of 133/100, pulse of 96, temperature of 97.7, respirations of 16, O2 sat s of 91% on room air. GENERAL: Well-developed, well-nourished -Nepalese male in no apparent distress. RESPIRATORY: Clear to auscultation bilaterally. CARDIOVASCULAR: Regular rate and rhythm. NEUROLOGIC: Mental status: The patient is awake and alert, oriented x3. Speech and language: Flue nt speech. Cranial nerves: Pupils are 3 mm and reactive. Visual [place] are intact. External muscl es are intact. No nystagmus is noted. Face is symmetric. Tongue and uvula are midline. Motor exam showed normal tone and bulk with a 5/5 strength in both upper and lower extremities. Sensory: Sens ation is intact and symmetric. Deep tendon reflexes 2+ reflexes in both upper and lower extremities. Gait and Romberg coordination could not be tested as he is on shackles. LABORATORY DATA: Reviewed, which included CBC, coag panel, CMP, which is significant for hemoglobin of 11.4, hematocrit of 37.0, otherwise unremarkable. IMAGING STUDIES: MRI brain with and without contrast was reviewed, which showed evidence of thick me ningeal enhancement and thickening predominantly at the skull base systems and posterior fossa sugges tive of venous congestion, obstructive hydrocephalus occurring at the level of the fourth ventricle, prominent paranasal sinus inflammatory mucosal disease. IMPRESSION: 1. Venous sinus thrombosis. 2. Intractable headache, due to venous sinus thrombosis. ASSESSMENT AND PLAN: Mr. Hadley is a pleasant 47-year-old -N[place]alese male who presented with se low intractable headache. His CT and MRI are consistent with venous sinus dura venous sinus thrombo ses. At this time, I recommend continuing him on heparin infusion. He can be started on Coumadin to bridge for oral anticoagulation since he did not have any fever, no neck stiffness or nuchal rigidit y on exam and white cell counts are normal. This is less likely to be infectious in etiology. I benedicto vega recommend consulting Dr. Ortega for his opinion. Given that he has obstructive hydrocephalus. Lum bar puncture should be avoided. Continue supportive care. Thank you for consultation.
[2017-10-23] MEDS: Acetaminophen/Codeine 30-300mg Tablet PO PRN ×4 (02:30→21:00)
[2017-10-23] MEDS: Levothyroxine Sodium 25 MCG TAB PO SCH (05:00)
[2017-10-23 05:16] LABS: Prothrombin Time 13.3 SEC (12.0-14.7)
[2017-10-23 05:30] LABS: Anion Gap 12 mmol/L (10-20); BUN (Urea Nitrogen) 7 mg/dL (8.9-20.6); Calc. Creatinine Clearance 88 mL/min (70-130); Calcium 9.2 mg/dL (7.8-10.44); Carbon Dioxide 25 mmol/L (22-29); Chloride 104 mmol/L (98-107); Estimated GFR-MDRD Greater than 90; Glucose 106 mg/dL (70-105); Potassium 3.6 mmol/L (3.5-5.1); Sodium 137 mmol/L (136-145)
[2017-10-23 05:50] LABS: #Basophils 0.1 thou/uL (0.0-0.2); #Eosinphils 0.2 thou/uL (0.0-0.7); #Lymphocytes 1.9 thou/uL (1.20-3.40); #Neutrophils 4.4 thou/uL (1.40-6.50); %Basophils 0.9 % (0.0-1.0); %Eosinophils 2.8 % (0.0-10.0); %Lymphocytes 24.7 % (21.0-51.0); %Monocytes 13.4 % (0.0-10.0); %Neutrophils 58.2 % (42.0-75.0); Hemoglobin 10.7 g/dL (14.0-18.0); Mean Corpuscular HGB CONC 31.8 g/dL (32.0-36.0); Mean Corpuscular Hemoglobin 27.1 pg (27.0-31.0); Mean Corpuscular Volume 85.2 fL (78.0-98.0); Mean Platelet Volume 8.5 fL (7.4-10.4); PLT Morphology Comment Appears Adequate; Platelet Count 233 thou/uL (130-400); RBC Distribution Width 15.5 % (11.5-14.5); Red Blood Cell (RBC) Count 3.93 mill/uL (4.70-6.10); White Blood Cell (WBC) Count 7.6 thou/uL (4.8-10.8)
[2017-10-23] MEDS: Famotidine 20 MG TAB PO SCH ×2 (08:13→21:00)
[2017-10-23] MEDS: Ferrous Sulfate 325 MG TAB PO SCH (08:13)
--- NOTE | 2017-10-23 11:36 | CT ---
HEAD CT WITHOUT CONTRAST: Date: 10/23/17 COMPARISON: 10/22/17, 10/21/17, and 10/20/17. CORRELATION: Brain MRI dated 10/20/17. HISTORY: Follow-up exam. Venous sinus thrombosis. TECHNIQUE: A noncontrast head CT is performed from the skull base to the skull vertex. FINDINGS: Stable configuration of the ventricular system. There is evidence of mild hydrocephalus. There is per sistent hyperdensity involving the tentorium, as well as the posterior falx. The degree of hyperdensi ty along the dural venous sinuses has not changed. There is no evidence of parenchymal hemorrhage. No extra-axial hematoma. No midline shift. Basilar cisterns are patent. Calvarium is intact. Stable aeration of the sinuses and mastoid air cells. IMPRESSION: Stable hyperdensity along the left and right tentorium, as well as the posterior falx. POS: [facility]
[2017-10-23] MEDS: Enoxaparin Sodium 60 MG/0.6 ML SYRINGE SC SCH ×2 (12:26→20:59)
[2017-10-23] MEDS: Lisinopril 5 MG TAB PO SCH ×2 (12:26→20:59)
--- NOTE | 2017-10-23 14:10 | PDOC.PN ---
- Subjective Encounter Start Date: 10/23/17 Encounter Start Time: 14:08 Subjective: c/o severe headache as he missed his morphine dose - Objective MAR Reviewed: Yes Vital Signs & Weight: Vital Signs (12 hours) Temp Pulse Resp BP BP Pulse Ox 10/23/17 12:26 68 10/23/17 12:00 97.8 F 68 20 154/87 H 94 L 10/23/17 08:28 138/88 10/23/17 08:10 97.4 F L 68 20 94 L 10/23/17 07:56 97.4 F L 68 20 171/84 H 94 L 10/23/17 04:00 97.5 F L 74 18 137/85 94 L Weight Admit Weight 135 lb 12.864 oz Weight 135 lb 12.864 oz Most Recent Monitor Data Heart Rate from ECG 67 NIBP 127/80 NIBP BP-Mean 91 Respiration from ECG 12 SpO2 96 I&O: 10/22/17 10/23/17 10/24/17 06:59 06:59 06:59 Intake Total 912.4 3330 Output Total 500 3475 Balance 412.4 -145 Result Diagrams: 10/23/17 04:45 10/23/17 04:45 Additional Labs: Laboratory Tests 10/20/17 10/20/17 10/20/17 02:40 02:40 10:52 Hgb 13.9 L 12.5 L INR 1.0 Func Antithrombin III Homocysteine HIV 1&2 Antigen & Ab 10/22/17 10/22/17 10/22/17 09:08 09:08 09:08 Hgb 11.5 L INR 1.0 Func Antithrombin III 80.0 L Homocysteine 7.05 HIV 1&2 Antigen & Ab 10/22/17 10/23/17 10/23/17 17:27 04:45 04:45 Hgb 10.7 L INR 1.0 Func Antithrombin III Homocysteine HIV 1&2 Antigen & Ab Non-Reactive labs reviewed Radiology Reviewed by me: Yes (Brain CT-stable) Phys Exam - Physical Examination Constitutional: NAD uncomfortable w head in both hands,pain HEENT: PERRLA, moist MMs, sclera anicteric, oral pharynx no lesions Neck: no nodes, no JVD, supple, full ROM Respiratory: no wheezing, no rales, no rhonchi, clear to auscultation bilateral Cardiovascular: RRR, no significant murmur Gastrointestinal: soft, non-tender, no distention, positive bowel sounds Musculoskeletal: no edema, pulses present Neurological: non-focal, normal sensation, moves all 4 limbs Psychiatric: normal affect, A&O x 3 Skin: no rash Dx/Plan (1) Cerebral venous sinus thrombosis Code(s): G08 - INTRACRANIAL AND INTRASPINAL PHLEBITIS AND THROMBOPHLEBITIS Status: Acute Comment: on heparin drip, will start warfarin (2) Asthma Code(s): J45.909 - UNSPECIFIED ASTHMA, UNCOMPLICATED Status: Chronic Comment : stable, continue PRN albuterol (3) Hepatitis C Code(s): B19.20 - UNSPECIFIED VIRAL HEPATITIS C WITHOUT HEPATIC COMA Status: Chronic Qualifiers: Viral hepatitis chronicity: chronic Hepatic coma status: without hepatic coma Qualified Code(s): B18.2 - Chronic viral hepatitis C Comment: stable (4) Hypothyroidism Code(s): E03.9 - HYPOTHYROIDISM, UNSPECIFIED Status: Chronic Comment: continue synthroid (5) Iron deficiency anemia Code(s): D50.9 - IRON DEFICIENCY ANEMIA, UNSPECIFIED Status: Chronic Comment : continue ferrous sulfate (6) HTN (hypertension) Code(s): I10 - ESSENTIAL (PRIMARY) HYPERTENSION Status: Chronic - Plan DVT proph w/SCDs add BID lovenox 1mg/kg till INR therapeutic.cont coumadin -: appreciate ID and Neuro input. -: w/u for hyperproteinemia.SPEP.HIV negative -: no indication for ABx for now.monitor clinically w neuro checks -: am labs.pain control * .BP uncontrolled. will add lisinopril BID & monitor Review of Systems - Review of Systems Constitutional: other (headache). negative: fever, chills, sweats, weakness, malaise Eyes: Pain ENT: negative: Ear Pain, Ear Discharge, Nose Pain, Nose Discharge, Nose Congestion, Mouth Pain, Mouth Swelling, Throat Pain, Throat Swelling, Other Respiratory: negative: Cough, Dry, Shortness of Breath, Hemoptysis, SOB with Excertion, Pleuritic Pain, Sputum, Wheezing Cardiovascular: negative: chest pain, palpitations, orthopnea, paroxysmal nocturnal dyspnea, edema, light headedness, other Gastrointestinal: negative: Nausea, Vomiting, Abdominal Pain, Diarrhea, Constipation, Melena, Hematochezia, Other Genitourinary: negative: Dysuria, Frequency, Incontinence, Hematuria, Retention , Other Musculoskeletal: negative: Neck Pain, Shoulder Pain, Arm Pain, Back Pain, Hand Pain, Leg Pain, Foot Pain, Other Neurological: negative: Weakness, Numbness, Incoordination, Change in Speech, Confusion, Seizures, Other - Medications/Allergies Allergies/Adverse Reactions: Allergies Allergy/AdvReac Type Severity Reaction Status Date / Time Penicillins Allergy Verified 10/20/17 05:24 Medications: Current Medications Acetaminophen/Codeine Phosphate (Tylenol #3) 1 tab PO Q4H PRN PRN Reason: Pain Last Admin: 10/23/17 12:46 Dose: 1 tab Albuterol Sulfate (Ventolin) 2.5 mg NEB [id number] PRN PRN Reason: Wheezing Albuterol Sulfate (Proventil Hfa) 2 puff INH Q6H PRN PRN Reason: SOB &/or Wheezing Bisacodyl (Dulcolax) 10 mg PO DAILYPRN PRN PRN Reason: Constipation Docusate Sodium (Colace) 100 mg PO BIDPRN PRN PRN Reason: Constipation Enoxaparin Sodium (Lovenox) 60 mg SC 0900,2100 [facility] Last Admin: 10/23/17 12:26 Dose: 60 mg Famotidine (Pepcid) 20 mg PO BID [facility] Last Admin: 10/23/17 08:13 Dose: 20 mg Ferrous Sulfate (Feosol) 325 mg PO DAILY [facility] Last Admin: 10/23/17 08:13 Dose: 325 mg Ketorolac Tromethamine (Toradol) 15 mg IVP Q6H PRN PRN Reason: Pain Stop: 10/28/17 13:05 Levothyroxine Sodium (Synthroid) 25 mcg PO 0600 [facility] Last Admin: 10/23/17 05:00 Dose: 25 mcg Lisinopril (Zestril) 5 mg PO BID [facility] Last Admin: 10/23/17 12:26 Dose: 5 mg Morphine Sulfate (Morphine) 2 mg SLOW IVP Q2HR PRN PRN Reason: severe breakthrough pain Last Admin: 10/23/17 12:27 Dose: 2 mg Nortriptyline HCl (Pamelor) 50 mg PO [facility] Last Admin: 10/22/17 21:49 Dose: Not Given Risperidone (Risperidone) 2 mg PO HS [facility] Last Admin: 10/22/17 21:50 Dose: Not Given Sodium Chloride (Flush - Normal Saline) 10 ml IVF Q12HR [facility] Last Admin: 10/23/17 08:14 Dose: 10 ml Sodium Chloride (Flush - Normal Saline) 10 ml IVF PRN PRN PRN Reason: Saline Flush Warfarin Sodium (Coumadin) 5 mg PO 1700 [facility] Last Admin: 10/22/17 15:09 Dose: 5 mg
[2017-10-23] MEDS: Warfarin Sodium 5 MG TAB PO SCH (16:30)
[2017-10-23] MEDS: Bisacodyl 5 MG TAB PO PRN (16:30)
[2017-10-23] MEDS: Ketorolac Tromethamine 30 MG/ML VIAL IVP PRN (16:31)
[2017-10-23] MEDS: Docusate 100 MG CAP PO PRN (16:31)
[2017-10-23] MEDS: risperiDONE 1 MG TAB PO SCH (20:59)
[2017-10-23] MEDS: Nortriptyline HCl 25 MG CAP PO SCH (21:00)
[2017-10-24 04:55] LABS: INR-International Normal Ratio 1.2; Prothrombin Time 14.9 SEC (12.0-14.7)
[2017-10-24 04:58] LABS: Hemoglobin 10.7 g/dL (14.0-18.0)
[2017-10-24] MEDS: Levothyroxine Sodium 25 MCG TAB PO SCH (05:10)
[2017-10-24] MEDS: Acetaminophen/Codeine 30-300mg Tablet PO PRN ×4 (05:11→20:55)
[2017-10-24] MEDS: Bisacodyl 5 MG TAB PO PRN (09:02)
[2017-10-24] MEDS: Docusate 100 MG CAP PO PRN (09:04)
[2017-10-24] MEDS: Famotidine 20 MG TAB PO SCH ×2 (09:05→20:56)
[2017-10-24] MEDS: Lisinopril 5 MG TAB PO SCH ×2 (09:05→20:56)
[2017-10-24] MEDS: Ferrous Sulfate 325 MG TAB PO SCH (09:06)
[2017-10-24 10:27] LABS: Hemoglobin 10.7 g/dL (14.0-18.0); Platelet Count 235 thou/uL (130-400)
--- NOTE | 2017-10-24 13:34 | PDOC.PN ---
- Subjective Encounter Start Date: 10/24/17 Encounter Start Time: 13:33 Subjective: still has headache every time he moves -: unsteady on his feet and feels dizzy - Objective MAR Reviewed: Yes Vital Signs & Weight: Vital Signs (12 hours) Temp Pulse Resp BP Pulse Ox 10/24/17 11:51 98.4 F 83 12 136/87 97 10/24/17 09:05 89 10/24/17 07:50 98.1 F 89 20 137/81 95 10/24/17 03:09 97.7 F 99 20 121/76 93 L Weight Admit Weight 135 lb 12.864 oz Weight 135 lb 12.864 oz Most Recent Monitor Data Heart Rate from ECG 67 NIBP 127/80 NIBP BP-Mean 91 Respiration from ECG 12 SpO2 96 I&O: 10/23/17 10/24/17 10/25/17 06:59 06:59 06:59 Intake Total 3330 Output Total 3475 875 Balance -145 -875 Result Diagrams: 10/24/17 10:21 10/23/17 04:45 Additional Labs: Laboratory Tests 10/20/17 10/22/17 10/22/17 02:40 09:08 17:27 INR 1.0 1.0 HIV 1&2 Antigen & Ab Non-Reactive 10/23/17 10/24/17 04:45 04:18 INR 1.0 1.2 HIV 1&2 Antigen & Ab Phys Exam - Physical Examination Constitutional: NAD lying w head in his hands HEENT: PERRLA, moist MMs, sclera anicteric, oral pharynx no lesions Neck: no nodes, no JVD, supple, full ROM Respiratory: no wheezing, no rales, no rhonchi, clear to auscultation bilateral Cardiovascular: RRR, no significant murmur, no rub Gastrointestinal: soft, non-tender, no distention, positive bowel sounds Musculoskeletal: no edema, pulses present Neurological: non-focal, normal sensation, moves all 4 limbs Psychiatric: normal affect, A&O x 3 Dx/Plan (1) Cerebral venous sinus thrombosis Code(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 Monitor INR. (2) Asthma Code(s): J45.909 - UNSPECIFIED ASTHMA, UNCOMPLICATED Status: Chronic Comment : stable, continue PRN albuterol (3) Hepatitis C Code(s): B19.20 - UNSPECIFIED VIRAL HEPATITIS C WITHOUT HEPATIC COMA Status: Chronic Qualifiers: Viral hepatitis chronicity: chronic Hepatic coma status: without hepatic coma Qualified Code(s): B18.2 - Chronic viral hepatitis C Comment: stable (4) Hypothyroidism Code(s): E03.9 - HYPOTHYROIDISM, UNSPECIFIED Status: Chronic Comment: continue synthroid (5) Iron deficiency anemia Code(s): D50.9 - IRON DEFICIENCY ANEMIA, UNSPECIFIED Status: Chronic Comment : continue ferrous sulfate (6) HTN (hypertension) Code(s): I10 - ESSENTIAL (PRIMARY) HYPERTENSION Status: Chronic - Plan PT/OT, respiratory therapy, incentive spirometry, out of bed/ambulate, DVT proph w/SCDs Cont Coumadin w Lovenox bridging.monitor in hous etill INR therapeutic -: SPEP and other studies pending for thrombosis work up -: monitor H/h and renal Fx -: supportive care -: BP better controlled w addition of lisinopril. * . Review of Systems - Review of Systems Constitutional: weakness, malaise. negative: fever, chills, sweats, other ENT: negative: Ear Pain, Ear Discharge, Nose Pain, Nose Discharge, Nose Congestion, Mouth Pain, Mouth Swelling, Throat Pain, Throat Swelling, Other Respiratory: negative: Cough, Dry, Shortness of Breath, Hemoptysis, SOB with Excertion, Pleuritic Pain, Sputum, Wheezing Cardiovascular: negative: chest pain, palpitations, orthopnea, paroxysmal nocturnal dyspnea, edema, light headedness, other Gastrointestinal: negative: Nausea, Vomiting, Abdominal Pain, Diarrhea, Constipation, Melena, Hematochezia, Other Genitourinary: negative: Dysuria, Frequency, Incontinence, Hematuria, Retention , Other Musculoskeletal: negative: Neck Pain, Shoulder Pain, Arm Pain, Back Pain, Hand Pain, Leg Pain, Foot Pain, Other Neurological: Other (headache,dizziness). negative: Weakness, Numbness, Incoordination, Change in Speech, Confusion, Seizures - Medications/Allergies Allergies/Adverse Reactions: Allergies Allergy/AdvReac Type Severity Reaction Status Date / Time Penicillins Allergy Verified 10/20/17 05:24 Medications: Current Medications Acetaminophen/Codeine Phosphate (Tylenol #3) 1 tab PO Q4H PRN PRN Reason: Pain Last Admin: 10/24/17 09:02 Dose: 1 tab Albuterol Sulfate (Ventolin) 2.5 mg NEB [id number] PRN PRN Reason: Wheezing Albuterol Sulfate (Proventil Hfa) 2 puff INH Q6H PRN PRN Reason: SOB &/or Wheezing Bisacodyl (Dulcolax) 10 mg PO DAILYPRN PRN PRN Reason: Constipation Last Admin: 10/24/17 09:02 Dose: 10 mg Docusate Sodium (Colace) 100 mg PO BIDPRN PRN PRN Reason: Constipation Last Admin: 10/24/17 09:04 Dose: 100 mg Enoxaparin Sodium (Lovenox) 60 mg SC 0900,2100 [facility] Last Admin: 10/23/17 20:59 Dose: 60 mg Famotidine (Pepcid) 20 mg PO BID [facility] Last Admin: 10/24/17 09:05 Dose: 20 mg Ferrous Sulfate (Feosol) 325 mg PO DAILY [facility] Last Admin: 10/24/17 09:06 Dose: 325 mg Ketorolac Tromethamine (Toradol) 15 mg IVP Q6H PRN PRN Reason: Pain Stop: 10/28/17 13:05 Last Admin: 10/23/17 16:31 Dose: 15 mg Levothyroxine Sodium (Synthroid) 25 mcg PO 0600 [facility] Last Admin: 10/24/17 05:10 Dose: 25 mcg Lisinopril (Zestril) 5 mg PO BID [facility] Last Admin: 10/24/17 09:05 Dose: 5 mg Morphine Sulfate (Morphine) 2 mg SLOW IVP Q2HR PRN PRN Reason: severe breakthrough pain Last Admin: 10/23/17 12:27 Dose: 2 mg Nortriptyline HCl (Pamelor) 50 mg PO HS [facility] Last Admin: 10/23/17 21:00 Dose: 50 mg Risperidone (Risperidone) 2 mg PO HS [facility] Last Admin: 10/23/17 20:59 Dose: Not Given Sodium Chloride (Flush - Normal Saline) 10 ml IVF Q12HR [facility] Last Admin: 10/24/17 09:07 Dose: 10 ml Sodium Chloride (Flush - Normal Saline) 10 ml IVF PRN PRN PRN Reason: Saline Flush Warfarin Sodium (Coumadin) 5 mg PO 1700 [facility] Last Admin: 10/23/17 16:30 Dose: 5 mg
[2017-10-24] MEDS ORDERED: Milk Of Magnesia 30 ML UDCUP PO PRN (13:41)
[2017-10-24] MEDS: Enoxaparin Sodium 60 MG/0.6 ML SYRINGE SC SCH ×2 (15:59→20:56)
[2017-10-24] MEDS: Warfarin Sodium 5 MG TAB PO SCH (16:00)
[2017-10-24] MEDS: Nortriptyline HCl 25 MG CAP PO SCH (20:57)
[2017-10-24] MEDS: risperiDONE 1 MG TAB PO SCH (20:57)
[2017-10-24 21:27] LABS: Cardiolipin IgA Ab 3.1 APL-U/mL (<14 Negative); EliA APS New Method **** NEW METHOD ****
[2017-10-24 21:28] LABS: Cardiolipin IgG Ab 2.1 GPL-U/mL (<10 Negative); Cardiolipin IgM Ab 5.1 MPL-U/mL (<10 Negative)
[2017-10-24] MEDS: Ketorolac Tromethamine 30 MG/ML VIAL IVP PRN (23:13)
[2017-10-25 04:59] LABS: INR-International Normal Ratio 1.3; Prothrombin Time 16.4 SEC (12.0-14.7)
[2017-10-25] MEDS: Levothyroxine Sodium 25 MCG TAB PO SCH (05:55)
[2017-10-25 07:25] LABS: Hemoglobin 10.4 g/dL (14.0-18.0)
[2017-10-25] MEDS: Docusate 100 MG CAP PO PRN (08:48)
[2017-10-25] MEDS: Ferrous Sulfate 325 MG TAB PO SCH (08:48)
[2017-10-25] MEDS: Famotidine 20 MG TAB PO SCH ×2 (08:48→20:38)
[2017-10-25] MEDS: Acetaminophen/Codeine 30-300mg Tablet PO PRN ×3 (08:49→20:38)
[2017-10-25] MEDS: Lisinopril 5 MG TAB PO SCH ×2 (08:49→20:38)
[2017-10-25] MEDS: Enoxaparin Sodium 60 MG/0.6 ML SYRINGE SC SCH ×2 (08:50→20:40)
[2017-10-25] MEDS: Ketorolac Tromethamine 30 MG/ML VIAL IVP PRN ×2 (09:40→17:06)
--- NOTE | 2017-10-25 14:59 | PDOC.PN ---
- Subjective Encounter Start Date: 10/25/17 Encounter Start Time: 09:00 Subjective: pt up in bed complains of bilateral ear pain - Objective Vital Signs & Weight: Vital Signs (12 hours) Temp Pulse Resp BP BP Pulse Ox 10/25/17 12:00 98 F 85 16 136/79 96 10/25/17 08:49 88 121/75 10/25/17 08:42 97.5 F L 88 16 97 10/25/17 07:35 97.5 F L 88 16 121/75 97 10/25/17 03:32 98.4 F 96 20 114/75 97 Weight Admit Weight 135 lb 12.864 oz Weight 135 lb 12.864 oz Most Recent Monitor Data Heart Rate from ECG 67 NIBP 127/80 NIBP BP-Mean 91 Respiration from ECG 12 SpO2 96 I&O: 10/24/17 10/25/17 10/26/17 06:59 06:59 06:59 Output Total 875 Balance -875 Result Diagrams: 10/25/17 04:33 10/23/17 04:45 Phys Exam - Physical Examination HEENT: PERRLA, moist MMs, sclera anicteric, TM's clear, oral pharynx no lesions , 2+ tonsils only some cerumenn noted, no redness noted Neck: no nodes, no JVD, supple, full ROM Respiratory: no wheezing, no rales, no rhonchi, wheezing present, clear to auscultation bilateral Cardiovascular: RRR, no significant murmur, no rub, gallop, irregular Gastrointestinal: soft, non-tender, no distention, positive bowel sounds Dx/Plan (1) Cerebral venous sinus thrombosis Code(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 Monitor INR. (2) HTN (hypertension) Code(s): I10 - ESSENTIAL (PRIMARY) HYPERTENSION Status: Chronic (3) Iron deficiency anemia Code(s): D50.9 - IRON DEFICIENCY ANEMIA, UNSPECIFIED Status: Chronic Comment : continue ferrous sulfate (4) Hypothyroidism Code(s): E03.9 - HYPOTHYROIDISM, UNSPECIFIED Status: Chronic Comment: continue synthroid - Plan spoke with nurse at the facility he is held who stated that will not be -: able to get lovonox today since their pharmacy is closed today -: will discharge pt home to am * . Review of Systems - Review of Systems ENT: Ear Pain Respiratory: negative: Cough, Dry, Shortness of Breath, Hemoptysis, SOB with Excertion, Pleuritic Pain, Sputum, Wheezing Cardiovascular: negative: chest pain, palpitations, orthopnea, paroxysmal nocturnal dyspnea, edema, light headedness, other Gastrointestinal: negative: Nausea, Vomiting, Abdominal Pain, Diarrhea, Constipation, Melena, Hematochezia, Other - Medications/Allergies Allergies/Adverse Reactions: Allergies Allergy/AdvReac Type Severity Reaction Status Date / Time Penicillins Allergy Verified 10/20/17 05:24 Medications: Current Medications Acetaminophen/Codeine Phosphate (Tylenol #3) 1 tab PO Q4H PRN PRN Reason: Pain Last Admin: 10/25/17 14:35 Dose: 1 tab Albuterol Sulfate (Ventolin) 2.5 mg NEB [id number] PRN PRN Reason: Wheezing Albuterol Sulfate (Proventil Hfa) 2 puff INH Q6H PRN PRN Reason: SOB &/or Wheezing Bisacodyl (Dulcolax) 10 mg PO DAILYPRN PRN PRN Reason: Constipation Last Admin: 10/24/17 09:02 Dose: 10 mg Docusate Sodium (Colace) 100 mg PO BIDPRN PRN PRN Reason: Constipation Last Admin: 10/25/17 08:48 Dose: 100 mg Enoxaparin Sodium (Lovenox) 60 mg SC 0900,2100 [facility] Last Admin: 10/25/17 08:50 Dose: 60 mg Famotidine (Pepcid) 20 mg PO BID [facility] Last Admin: 10/25/17 08:48 Dose: 20 mg Ferrous Sulfate (Feosol) 325 mg PO DAILY [facility] Last Admin: 10/25/17 08:48 Dose: 325 mg Ketorolac Tromethamine (Toradol) 15 mg IVP Q6H PRN PRN Reason: Pain Stop: 10/28/17 13:05 Last Admin: 10/25/17 09:40 Dose: 15 mg Levothyroxine Sodium (Synthroid) 25 mcg PO 0600 [facility] Last Admin: 10/25/17 05:55 Dose: 25 mcg Lisinopril (Zestril) 5 mg PO BID [facility] Last Admin: 10/25/17 08:49 Dose: 5 mg Magnesium Hydroxide (Milk Of Magnesium) 30 ml PO DAILYPRN PRN PRN Reason: Constipation Last Admin: 10/24/17 20:56 Dose: 30 ml Morphine Sulfate (Morphine) 2 mg SLOW IVP Q2HR PRN PRN Reason: severe breakthrough pain Last Admin: 10/23/17 12:27 Dose: 2 mg Nortriptyline HCl (Pamelor) 50 mg PO HS [facility] Last Admin: 10/24/17 20:57 Dose: Not Given Risperidone (Risperidone) 2 mg PO HS [facility] Last Admin: 10/24/17 20:57 Dose: Not Given Sodium Chloride (Flush - Normal Saline) 10 ml IVF Q12HR [facility] Last Admin: 10/25/17 08:50 Dose: 10 ml Sodium Chloride (Flush - Normal Saline) 10 ml IVF PRN PRN PRN Reason: Saline Flush Warfarin Sodium (Coumadin) 5 mg PO 1700 [facility] Last Admin: 10/24/17 16:00 Dose: 5 mg
[2017-10-25 16:38] LABS: Calc. Creatinine Clearance 89 mL/min (70-130); Estimated GFR-MDRD Greater than 90
[2017-10-25] MEDS: Warfarin Sodium 5 MG TAB PO SCH (17:05)
[2017-10-25] MEDS: Bisacodyl 5 MG TAB PO PRN (20:40)
[2017-10-25] MEDS: Nortriptyline HCl 25 MG CAP PO SCH (20:40)
[2017-10-25] MEDS: risperiDONE 1 MG TAB PO SCH (20:40)
[2017-10-26] MEDS: Acetaminophen/Codeine 30-300mg Tablet PO PRN ×4 (00:32→20:22)
[2017-10-26] MEDS: Ketorolac Tromethamine 30 MG/ML VIAL IVP PRN (02:56)
[2017-10-26 05:03] LABS: Hemoglobin 10.9 g/dL (14.0-18.0)
[2017-10-26 05:10] LABS: INR-International Normal Ratio 1.4; Prothrombin Time 17.6 SEC (12.0-14.7)
[2017-10-26] MEDS: Levothyroxine Sodium 25 MCG TAB PO SCH (05:13)
[2017-10-26] MEDS: Lisinopril 5 MG TAB PO SCH ×2 (07:49→23:53)
[2017-10-26] MEDS: Famotidine 20 MG TAB PO SCH ×2 (07:49→23:33)
[2017-10-26] MEDS: Enoxaparin Sodium 60 MG/0.6 ML SYRINGE SC SCH ×2 (07:50→20:22)
[2017-10-26] MEDS: Ferrous Sulfate 325 MG TAB PO SCH (07:50)
[2017-10-26 10:54] LABS: Hemoglobin 10.7 g/dL (14.0-18.0); Platelet Count 272 thou/uL (130-400)
[2017-10-26 13:15] LABS: HCV I.Units 12300000 IU/mL (.); Hep C PCR-Quant See Final Results IU/mL (.)
[2017-10-26 15:55] LABS: HEX PHOS LA Tube 1 74.6 SEC; HEX PHOS LA Tube 2 60.4 SEC; Hexagonal Phospholipid Neut 14.1 SEC (0-8.0)
[2017-10-26] MEDS: Warfarin Sodium 5 MG TAB PO SCH (16:59)
--- NOTE | 2017-10-26 20:01 | PDOC.PN ---
- Subjective Encounter Start Date: 10/26/17 Encounter Start Time: 09:00 Subjective: pt up in bed still gets headaches - Objective Vital Signs & Weight: Vital Signs (12 hours) Temp Pulse Resp BP Pulse Ox 10/26/17 15:40 98.6 F 88 20 138/75 96 10/26/17 12:00 97.5 F L 86 16 135/80 95 10/26/17 08:00 97.6 F 87 16 161/92 H 95 Weight Admit Weight 135 lb 12.864 oz Weight 135 lb 12.864 oz Most Recent Monitor Data Heart Rate from ECG 67 NIBP 127/80 NIBP BP-Mean 91 Respiration from ECG 12 SpO2 96 I&O: 10/25/17 10/26/17 10/27/17 06:59 06:59 06:59 Intake Total 250 900 Output Total 400 Balance 250 500 Result Diagrams: 10/26/17 10:35 10/25/17 16:12 Phys Exam - Physical Examination HEENT: PERRLA, moist MMs, sclera anicteric, TM's clear, oral pharynx no lesions , 2+ tonsils Neck: no nodes, no JVD, supple, full ROM Respiratory: no wheezing, no rales, no rhonchi, wheezing present, clear to auscultation bilateral Cardiovascular: RRR, no significant murmur, no rub, gallop, irregular Gastrointestinal: soft, non-tender, no distention, positive bowel sounds Dx/Plan (1) Cerebral venous sinus thrombosis Code(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 Monitor INR. (2) HTN (hypertension) Code(s): I10 - ESSENTIAL (PRIMARY) HYPERTENSION Status: Chronic (3) Iron deficiency anemia Code(s): D50.9 - IRON DEFICIENCY ANEMIA, UNSPECIFIED Status: Chronic Comment : continue ferrous sulfate (4) Hypothyroidism Code(s): E03.9 - HYPOTHYROIDISM, UNSPECIFIED Status: Chronic Comment: continue synthroid - Plan INR still subtheraputic -: will continue lovonox. ok to be discharged * . Review of Systems - Review of Systems Eyes: negative: Pain, Vision Change, Conjunctivae Inflammation, Eyelid Inflammation, Redness, Other ENT: negative: Ear Pain, Ear Discharge, Nose Pain, Nose Discharge, Nose Congestion, Mouth Pain, Mouth Swelling, Throat Pain, Throat Swelling, Other Respiratory: negative: Cough, Dry, Shortness of Breath, Hemoptysis, SOB with Excertion, Pleuritic Pain, Sputum, Wheezing Cardiovascular: negative: chest pain, palpitations, orthopnea, paroxysmal nocturnal dyspnea, edema, light headedness, other Musculoskeletal: negative: Neck Pain, Shoulder Pain, Arm Pain, Back Pain, Hand Pain, Leg Pain, Foot Pain, Other Skin: negative: Rash, Lesions, Dhruv, Bruising, Other - Medications/Allergies Allergies/Adverse Reactions: Allergies Allergy/AdvReac Type Severity Reaction Status Date / Time Penicillins Allergy Verified 10/20/17 05:24 Medications: Current Medications Acetaminophen/Codeine Phosphate (Tylenol #3) 1 tab PO Q4H PRN PRN Reason: Pain Last Admin: 10/26/17 13:46 Dose: 1 tab Albuterol Sulfate (Ventolin) 2.5 mg NEB [id number] PRN PRN Reason: Wheezing Albuterol Sulfate (Proventil Hfa) 2 puff INH Q6H PRN PRN Reason: SOB &/or Wheezing Bisacodyl (Dulcolax) 10 mg PO DAILYPRN PRN PRN Reason: Constipation Last Admin: 10/25/17 20:40 Dose: 10 mg Docusate Sodium (Colace) 100 mg PO BIDPRN PRN PRN Reason: Constipation Last Admin: 10/25/17 08:48 Dose: 100 mg Enoxaparin Sodium (Lovenox) 60 mg SC 0900,2100 [facility] Last Admin: 10/26/17 07:50 Dose: 60 mg Famotidine (Pepcid) 20 mg PO BID [facility] Last Admin: 10/26/17 07:49 Dose: 20 mg Ferrous Sulfate (Feosol) 325 mg PO DAILY [facility] Last Admin: 10/26/17 07:50 Dose: 325 mg Ketorolac Tromethamine (Toradol) 15 mg IVP Q6H PRN PRN Reason: Pain Stop: 10/28/17 13:05 Last Admin: 10/26/17 02:56 Dose: 15 mg Levothyroxine Sodium (Synthroid) 25 mcg PO 0600 [facility] Last Admin: 10/26/17 05:13 Dose: 25 mcg Lisinopril (Zestril) 5 mg PO BID [facility] Last Admin: 10/26/17 07:49 Dose: 5 mg Magnesium Hydroxide (Milk Of Magnesium) 30 ml PO DAILYPRN PRN PRN Reason: Constipation Last Admin: 10/24/17 20:56 Dose: 30 ml Morphine Sulfate (Morphine) 2 mg SLOW IVP Q2HR PRN PRN Reason: severe breakthrough pain Last Admin: 10/26/17 07:45 Dose: 2 mg Nortriptyline HCl (Pamelor) 50 mg PO HS [facility] Last Admin: 10/25/17 20:40 Dose: Not Given Risperidone (Risperidone) 2 mg PO HS [facility] Last Admin: 10/25/17 20:40 Dose: Not Given Sodium Chloride (Flush - Normal Saline) 10 ml IVF Q12HR [facility] Last Admin: 10/26/17 07:51 Dose: 10 ml Sodium Chloride (Flush - Normal Saline) 10 ml IVF PRN PRN PRN Reason: Saline Flush Warfarin Sodium (Coumadin) 5 mg PO 1700 [facility] Last Admin: 10/26/17 16:59 Dose: 5 mg
[2017-10-26 20:53] VITALS: BP 165/102; TEMP 97.9
[2017-10-26] MEDS: Nortriptyline HCl 25 MG CAP PO SCH (23:53)
[2017-10-26] MEDS: risperiDONE 1 MG TAB PO SCH (23:55)
[2017-10-27 06:16] LABS: A/G Ratio 0.6 (0.7-1.7); Albumin 2.9 g/dL (2.9-4.4); Alpha 1 0.4 g/dL (0.0-0.4); Alpha 2 1.2 g/dL (0.4-1.0); Beta 1.1 g/dL (0.7-1.3); Gamma 2.4 g/dL (0.4-1.8); M-Spike Not Observed g/dL (Not Observed); Protein Electrophoresis Intrp Note: (.)
[2017-10-28 15:43] LABS: Factor VIII Test 282.2 % ACTIVE (56-157)
== END 2017-10-26 23:34 | DRG 91 ==
LOC: ERS 01:46 → CCU 05:15 → 2SE 10-21 12:01
PROVIDERS: ADMIT Neurological Surgery; ATTEND Internal Medicine
DX: I67.6 Nonpyogenic thrombosis of intracranial venous system (principal); G93.6 Cerebral edema; G91.0 Communicating hydrocephalus; J45.909 Unspecified asthma, uncomplicated; E03.9 Hypothyroidism, unspecified; D89.2 Hypergammaglobulinemia, unspecified; F20.9 Schizophrenia, unspecified; D50.9 Iron deficiency anemia, unspecified; B18.2 Chronic viral hepatitis C; I11.0 Hypertensive heart disease with heart failure; Z88.0 Allergy status to penicillin; Z79.899 Other long term (current) drug therapy
CPT/HCPCS: 36415; 70450; 70496; 70498; 70553; 80048; 80053; 81240; 81241; 82565; 83090; 84165; 85014; 85018; 85025; 85049; 85240; 85300; 85303; 85305; 85307; 85379; 85598; 85610; 85730; 86147; 87389; 87522; A4216; A9579; J0131; J1644; J1650; J1885; J1953; J2270; J3370